=== PATIENT | female | born 1940 | race Caucasian/White ===

== ENCOUNTER 2017-12-27 12:22 | Outpatient (CLI) | payer MEDICARE ==
--- NOTE | 2017-12-27 14:25 | MMO ---
BILATERAL SCREENING MAMMOGRAMS: Date: 12/27/17 HISTORY: Annual screening mammography. This patient's mammogram was interpreted with the assistance of computer-aided detection. COMPARISON: 12/09/16, 11/05/15, 05/01/14, 04/05/13, and 02/24/12. FINDINGS: There is a heterogeneously dense parenchymal pattern, which may lower the sensitivity of mammography. Benign-appearing calcifications are seen in the right breast. There is a mass seen within the upper outer left breast measuring 8.0 mm. This may represent an intra mammary lymph node, but further evaluation is warranted. No additional mass or suspicious grouping of microcalcifications are seen in either breast. IMPRESSION: BIRADS 0: Incomplete: Need Additional Imaging Evaluation and/or Prior Mammograms for Comparison Magnification compression CC and MLO views of left breast, in addition to 90 degree mediolateral view recommended. Ultrasound examination should also be scheduled at this time if warranted. The facility will notify patient of need for additional imaging services. POS: ROMY
== END 2017-12-27 12:23 | disposition home or self-care (01) ==
LOC: SCSMAMMO 12:22
PROVIDERS: ATTEND Obstetrics & Gynecology
DX: Z12.31 Encounter for screening mammogram for malignant neoplasm of breast (principal)
CPT/HCPCS: 77067

== ENCOUNTER 2018-01-07 14:17 | Outpatient (CLI) | payer MEDICARE, BC | END 2018-01-07 14:18 | disposition home or self-care (01) | LOC: BICMAMMO 14:17 | PROVIDERS: ATTEND Obstetrics & Gynecology | DX: N63.21 Unspecified lump in the left breast, upper outer quadrant (principal) | CPT/HCPCS: 76642; 77065; G0279 ==

== ENCOUNTER 2019-08-29 11:16 | Outpatient (CLI) | payer MEDICARE, BC ==
--- NOTE | 2019-08-29 12:49 | MMO ---
Bilateral MAMMO Bilat Screen [facility]. CLINICAL HISTORY: Patient is 79 years old and is seen for screening. The patient has the following family history of breast cancer: niece, malignant (generic). The patient has no personal history of cancer. VIEWS: The views performed were: bilateral craniocaudal with tomosynthesis and bilateral mediolateral oblique with tomosynthesis. FILMS COMPARED: The present examination has been compared to prior imaging studies performed at [facility] on 01/07/2018, and at [facility] on 05/01/2014, 11/05/2015 and 12/09/2016. This study has been interpreted with the assistance of computer-aided detection. MAMMOGRAM FINDINGS: The breasts are heterogeneously dense, which could obscure a lesion on mammography. There are stable benign appearing calcifications seen in both breasts. There are also vascular calcifications. Nodularity is stable. There are no suspicious masses, suspicious calcifications, or new areas of architectural distortion. IMPRESSION: THERE IS NO MAMMOGRAPHIC EVIDENCE OF MALIGNANCY. A ROUTINE FOLLOW-UP MAMMOGRAM IN 1 YEAR IS RECOMMENDED. THE RESULTS OF THIS EXAM WERE SENT TO THE PATIENT. ACR BI-RADS Category 2 - Benign finding MAMMOGRAPHY NOTE: 1. A negative mammogram report should not delay a biopsy if a dominant of clinically suspicious mass is present. 2. Approximately 10% to 15% of breast cancers are not detected by mammography. 3. Adenosis and dense breasts may obscure an underlying neoplasm. Reported by: RIKKI CHRISTIE MD Electonically Signed: [id number]
== END 2019-08-29 11:17 | disposition home or self-care (01) ==
LOC: BICMAMMO 11:16
PROVIDERS: ATTEND Obstetrics & Gynecology
DX: Z12.31 Encounter for screening mammogram for malignant neoplasm of breast (principal); Z80.3 Family history of malignant neoplasm of breast
CPT/HCPCS: 77063; 77067

== ENCOUNTER 2019-11-13 10:37 | Outpatient (CLI) | payer MEDICARE, BC ==
--- NOTE | 2019-11-13 11:03 | BD ---
EXAM: DEXA bone density examination HISTORY: 79-year-old postmenopausal female for screening COMPARISON: None FINDINGS: L1--bone mineral density 0.858 g/sq cm; T score -1.2 L2--bone mineral density 1.053 g/sq cm; T score 0.2 L3--bone mineral density 1.059 g/sq cm; T score -0.2 L4--bone mineral density 1.066 g/sq cm; T score 0.0 Total L1-L4--bone mineral density 1.013 g/sq cm; T score -0.3 Left femoral neck--bone mineral density0.581; T score -2.4 Total proximal left femur--bone mineral density 0.796; T score -1.2 IMPRESSION: Osteopenia. This patient has a 10 year WHO fracture risk of a major osteoporotic fracture of 17% and of a hip fracture of 5.5%.
== END 2019-11-13 10:38 | disposition home or self-care (01) ==
LOC: BICMAMMO 10:37
PROVIDERS: ATTEND Obstetrics & Gynecology
DX: Z13.820 Encounter for screening for osteoporosis (principal); M85.89 Other specified disorders of bone density and structure, multiple sites
CPT/HCPCS: 77080